=== PATIENT | female | born 1970 | race Two or more races ===

== ENCOUNTER 2021-08-19 09:45 | Outpatient (CLI) | payer OTHER | END 2021-08-19 09:48 | disposition home or self-care (01) | LOC: LAB 09:45 | PROVIDERS: ATTEND Urology | DX: N30.00 Acute cystitis without hematuria (principal); N20.0 Calculus of kidney ==

== ENCOUNTER 2021-08-24 11:32 | Outpatient (CLI) | payer OTHER | END 2021-08-24 11:34 | disposition home or self-care (01) | LOC: LAB 11:32 | PROVIDERS: ATTEND Urology | DX: N30.00 Acute cystitis without hematuria (principal) ==

== ENCOUNTER 2021-08-27 07:37 | Inpatient (IN) | payer OTHER ==
[~2021-08-27] VITALS: Ht 165.1 cm; Wt 108.9 kg
[2021-08-27] MEDS ORDERED: SYNTHROID125 MCG PO (08:10)
[2021-08-27] MEDS ORDERED: CLONAZEPAM1 M1 PO (08:11)
[2021-08-27] MEDS ORDERED: WELLBUTRIN SR150 MG PO (08:11)
[2021-08-27] MEDS ORDERED: RESTORIL30 MG PO (08:11)
[2021-08-27] MEDS ORDERED: SEROQUEL400 MG PO (08:12)
[2021-08-27] MEDS ORDERED: CIPRO500 MG PO (08:12)
[2021-08-27] MEDS ORDERED: DEPAKOTE ER500 MG PO (08:12)
[2021-08-27] MEDS ORDERED: FUSION PLUS CA1 EACH PO (08:13)
== END 2021-09-03 13:06 | disposition home or self-care (01) | DRG 660 ==
LOC: EDSTATUS 08:45 → CIR.AMB 09-01 07:53 → SURH 09-01 07:53 → SURG 09-01 07:53 → EDSTATUS 09-01 08:45 → CIR.AMB 09-01 08:45 → SURG 09-01 15:43
PROVIDERS: ADMIT Urology; ATTEND Urology
PROC: 0TF Urinary System, Fragmentation (ICD-10-PCS; 2021-09-01)
PROC: BT1DZZZ Fluoroscopy of Right Kidney, Ureter and Bladder (ICD-10-PCS; 2021-09-01)
PROC: 0TC03ZZ Extirpation of Matter from Right Kidney, Percutaneous Approach (ICD-10-PCS; principal; 2021-09-01 13:00)
DX: N20.0 Calculus of kidney (principal); N39.0 Urinary tract infection, site not specified; Z20.822 Contact with and (suspected) exposure to COVID-19

== ENCOUNTER 2021-09-10 07:03 | Outpatient (CLI) | payer OTHER ==
[~2021-09-10 07:03] MED LIST: CIPRO500 MG PO; CLONAZEPAM1 M1 PO; DEPAKOTE ER500 MG PO; FUSION PLUS CA1 EACH PO; RESTORIL30 MG PO; SEROQUEL400 MG PO; SYNTHROID125 MCG PO; WELLBUTRIN SR150 MG PO
== END 2021-09-10 07:13 | disposition home or self-care (01) ==
LOC: LAB 07:03
PROVIDERS: ATTEND Urology
DX: D62 Acute posthemorrhagic anemia (principal); N20.0 Calculus of kidney